=== PATIENT | male | born 1975 | race Caucasian/White ===

== ENCOUNTER 2016-06-08 23:07 | Emergency (ER) | payer OTHER ==
[~2016-06-08] VITALS: Ht 198.1 cm; Wt 141.4 kg
[~2016-06-08 23:07] MED LIST: CLINDAMYCIN HC300 MG PO; PERCOCET 5/31 TABLET PO; ZOFRAN ODT4 MG PO
[2016-06-08 23:50] LABS: MCH 28.4 PG (29.0-34.0); MCHC 35.2 G/DL (30.0-36.0); MCV 80.7 FL (86-99); MEAN PLAT.VOLUME 10.7 uM^3 (9.0-12.4); PLATELET COUNT 262 K/uL (156-360); RBC DIS.WIDTH-CV 13.1 % (11.8-14.6); RBC DIS.WIDTH-SD 38.1 % (39-53); RED BLOOD COUNT 5.45 M/uL (4.00-5.50); WHITE BLOOD COUNT 11.1 K/uL (4.1-10.2)
[2016-06-09 00:01] LABS: CHLORIDE 108 mEq/L (99-109); POTASSIUM 4.1 mEq/L (3.7-5.4); SODIUM 139 mEq/L (136-147)
[2016-06-09 00:03] LABS: GLUCOSE 94 mg/dL (70-99)
[2016-06-09 00:04] LABS: ANION GAP 12 MEQ/L (2-14)
[2016-06-09 00:07] LABS: GFR ESTIMATE (CALCULATED) 48 mL/min/; UREA NITROGEN (BUN) 25 mg/dL (9-23)
[2016-06-09 00:13] LABS: TROP-I INTERPRETATION NEGATIVE; TROPONIN-I 0.01 ng/mL (0.0-0.30)
[2016-06-09 00:36] LABS: D-DIMER ELISA 0.17 mg/L FEU (< 0.57); INTER. NORMALIZED RATIO 1.1; PROTHROMBIN TIME 11.1 (9.2-11.2); PTT 27.8 (25-32)
[2016-06-09 03:11] VITALS: BP 107/69
[2016-06-09 09:48] LABS: MAGNESIUM 1.9 mg/dl (1.3-2.7)
== END 2016-06-09 03:11 | disposition home or self-care (01) ==
LOC: EME 23:07
PROC: 5A2204Z Restoration of Cardiac Rhythm, Single (ICD-10-PCS; principal; 2016-06-09)
DX: I48.91 Unspecified atrial fibrillation (principal); R00.2 Palpitations; N28.9 Disorder of kidney and ureter, unspecified; E86.0 Dehydration
CPT/HCPCS: 71020; 80048; 83735; 84443; 84484; 85027; 85379; 85610; 85730; 93005; 99281; 99284; J7030